=== PATIENT | male | born 1945 | race Caucasian/White ===

== ENCOUNTER 2016-11-04 11:58 | Day surgery (SDC) | payer MEDICARE, OTHER ==
[~2016-11-04] VITALS: Ht 185.4 cm; Wt 81.7 kg
[~2016-11-04 11:58] MED LIST: DOXA4TAB2 PO; ESCI20TA PO; LORA1TAB PO; MULT-1018 PO; SIME180C4 PO; Sodium Chloride LOK Flush 10 mL Syringe IV PRN; VALA500T2 PO; fentaNYL-PF 50 mCg/mL 2 mL Inj IVPUSH PRN
[2016-11-04 12:23] VITALS: BP 131/77; PULSE 75; RESP 14; O2SAT 96
[2016-11-04] MEDS: 0.9% Sodium Chloride 1,000 ML IV SCH ×2 (13:04→14:40)
[2016-11-04 14:48] VITALS: BP 131/69; PULSE 72; RESP 17; O2SAT 97
[2016-11-04 14:55] VITALS: BP 124/65; PULSE 70; RESP 17; O2SAT 96
[2016-11-04 15:05] VITALS: BP 108/58; PULSE 73; RESP 17; O2SAT 93
--- NOTE | 2016-11-04 15:28 | ENDO ---
[address] [address] ENDOSCOPY PROCEDURE PATIENT: KATIUSKA KUNZ : 1945 MR#: [id number] ADMIT: 11/04/2016 JOB ID: [id number] DATE OF SERVICE: 11/04/2016 PRIMARY PROVIDER: Nikolas Bridges MD. PROCEDURE: 1. Esophagogastroduodenoscopy with biopsies. 2. Colonoscopy. INDICATIONS: This is a 71-year-old male with a history of diffuse large B-cell lymphoma originally diagnosed in 2009, with a relapse in 2014/early 2015, showing right colon involvement. The patient recently had a self-limited spell of nausea and vomiting of uncertain etiology and therefore, repeat endoscopic interrogation was requested. EQUIPMENT: GIF-H180J and PCF-H180AL. SEDATION: 1. Versed 6 mg. 2. Fentanyl 150 mcg. COMPLICATIONS: None identified. BOWEL PREPARATION: Fair. PROCEDURE INFORMATION: After the risks and benefits were explained, written and verbal informed consent was obtained. The patient was brought into the endoscopy suite and placed into the left lateral decubitus position. Sedation was achieved using the above-stated medications with the addition of oxygen via nasal cannula. The scope was introduced into the mouth through the bite block, and advanced under direct visualization to the second portion of the duodenum. The scope was slowly withdrawn to carefully examine the mucosa for any defects or lesions. Retroflexed views were accomplished in the stomach. The stomach was decompressed. The scope removed from the patient who tolerated the procedure well. The patient was then turned around. A digital rectal examination accomplished. No significant pathology appreciated. The scope was introduced into the rectum and advanced under direct visualization to the level of the cecum, as identified by the appendiceal orifice and ileocecal valve. The scope was slowly withdrawn to carefully examine the mucosa for any defects or lesions. Retroflexed views were avoided in the rectum. Multiple direct views were made through the dentate line for exclusion of pathology. The colon was decompressed. The scope removed from the patient who tolerated the procedure well. FINDINGS: 1. Duodenum: This appeared visually unremarkable from the bulb through to the second portion. 2. Stomach: No significant mucosal abnormality was appreciated. The patient did have a few benign appearing polyps that we removed with cold forceps and submitted for histopathology. Retroflexed views of the LES were otherwise unremarkable. 3. Esophagus: The squamocolumnar junction correlated with the top of the gastric folds. The GE junction was at 40 cm from the incisors. No acute erosive changes. No strictures. No mass lesions. 4. Colon: Extremely difficult navigation. Very tortuous and redundant colon. Prep conditions as a consequence of the tortuosity were slightly suboptimal requiring copious amounts of irrigation and suction to render the mucosal exam acceptable. No significant polyps or mass lesions were identified. However, the patient did have an obvious submucosal fullness right at the level of the base of the appendix in the cecum. Multiple photographs were taken. Using the forceps, this felt firm but not hard under the forceps. There was no significant overlying mucosal pathology. Throughout the remainder of the bowel there were no significant mucosal abnormalities. ENDOSCOPIC DIAGNOSES: 1. Diminutive gastric polyps. 2. Otherwise visually unremarkable esophagogastroduodenoscopy. 3. Submucosal mass lesion (approximately 1 cm) at the level of the appendiceal orifice. 4. Otherwise no colonic mucosal pathology. RECOMMENDATIONS: 1. Await histopathology. 2. Follow up in Oncology Clinic with Dr. Haro. I would defer further imaging to Dr. Haro in light of what we identified at the base of the appendix. Not sure if the patient needs a repeat PET scan or whether just a conventional CT of abdomen and pelvis with IV contrast would be sufficient here. Really, the pathology at this level is a little uncertain and does warrant surveillance.
--- NOTE | 2016-11-06 16:11 | PATH ---
SURGICAL PATHOLOGY Attending Physician:Soha Keith CASE STATUS: Signed Out PATIENT NAME: KATIUSKA KUNZ PID: [id number] : 1945 DATE COLLECTED:11/04/2016 00:00 SPECIMEN: Stomach, Polyp, Biopsy CLINICAL HISTORY: Altered bowel habits 1).GASTRIC POLYPS FINAL DIAGNOSIS: Gastric Polyps: Fundic gland polyps. Negative for intestinal metaplasia. Negative for dysplasia and malignancy. ICD10: K31.7 GROSS DESCRIPTION: The specimen is received in one formalin filled container labeled with the patient's name, sublabeled "gastric polyps" and consists of 3 portions of tissue which aggregate to 0.3 x 0.3 x 0.3 CM. All fragments are totally submitted in one cassette. 11/05/2016 [facility] MICRO DESCRIPTION: Please see diagnosis. ICD-9 CODES: CPT CODES: 1: 89844 Electronically Signed Out Nelly Abrams MD [facility] [address], [place] [address] Technical component performed at [facility], [facility] [address], [address]
[2016-12-02] MEDS ORDERED: LORA1TAB PO (16:25)
== END 2016-11-04 23:59 | disposition home or self-care (01) ==
LOC: END 11:58
PROVIDERS: ATTEND Internal Medicine Gastroenterology
DX: R19.4 Change in bowel habit (principal); R11.2 Nausea with vomiting, unspecified; K31.7 Polyp of stomach and duodenum; C83.30 Diffuse large B-cell lymphoma, unspecified site; D70.9 Neutropenia, unspecified
CPT/HCPCS: 43239; 45378; 99153; G0500; J2250; J3010; J7030